=== PATIENT | male | born 1960 | race Caucasian/White ===

== ENCOUNTER 2022-08-18 14:29 | Emergency (ER) | payer MEDICAID ==
[~2022-08-18] VITALS: Ht 175.2 cm; Wt 83.0 kg
[2022-08-18] MEDS ORDERED: OMEPRAZOLE40 MG PO (14:41)
[2022-08-18] MEDS ORDERED: LISINOPRIL20 MG PO (14:41)
[2022-08-18 15:02] LABS: BILIRUBIN Negative (Negative); BLOOD Negative (Negative); CLARITY Clear (Clear); COLOR Yellow (Yellow); GLUCOSE Negative (Negative); KETONE Negative (Negative); LEUKO ESTERASE 1+ (Negative); NITRITE Negative (Negative); UROBILINOGEN 0.2 E.U./dl (0.0-1.0)
[2022-08-18 15:25] LABS: RBC 0-2 rbc/hpf (0-2)
[2022-08-18 15:35] LABS: BASO % 0.3 % (0.0-1.0); EOS # 0.2 10*3/uL (0.0-0.4); EOS % 2.6 % (1.0-4.0); HEMATOCRIT 34.8 % (42.0-52.0); LYMPH # 1.3 10*3/uL (1.3-4.4); LYMPH % 18.5 % (27.0-41.0); MEAN CELL VOLUME 93.3 fl (80.0-94.0); MEAN CORPUSCULAR HGB 29.2 pg (27.0-31.0); MEAN CORPUSCULAR HGB CONC 31.3 g/dl (33.0-37.0); MEAN PLATELET VOLUME 9.9 fl (9.6-12.3); MONO # 0.8 10*3/uL (0.1-1.0); MONO % 11.8 % (3.0-9.0); NEUT # 4.6 10*3/uL (2.3-7.9); NEUT % 66.5 % (47.0-73.0); PLATELET COUNT AUTOMATED 280 10*3/uL (130-400); RED BLOOD COUNT 3.73 10*6/uL (4.50-5.90); RED CELL DISTRI WIDTH 15.9 % (0-14.5)
[2022-08-18 15:53] LABS: POTASSIUM 4.3 mmol/L (3.4-5.1); TOTAL PROTEIN 6.6 gm/dL (6.0-8.0)
== END 2022-08-18 17:35 | disposition left against medical advice (07) ==
LOC: ED 14:29
PROVIDERS: Student in an Organized Health Care Education/Training Program
DX: N13.9 Obstructive and reflux uropathy, unspecified (principal); R33.9 Retention of urine, unspecified; N40.0 Benign prostatic hyperplasia without lower urinary tract symptoms; Z79.899 Other long term (current) drug therapy

== ENCOUNTER → 2024-07-31 | Outpatient (CLI) | payer MEDICARE ==
[~2024-07-31] MED LIST: IOHEXOL 300 MG/ML 100 ML VIAL IV ONE; IOHEXOL 300 MG/ML 100 ML VIAL ONE; LISINOPRIL20 MG PO; OMEPRAZOLE40 MG PO
== END | disposition home or self-care (01) ==
LOC: CT 00:27
PROVIDERS: ATTEND Family Medicine
DX: C61 Malignant neoplasm of prostate (principal); N32.89 Other specified disorders of bladder; K76.89 Other specified diseases of liver; N40.0 Benign prostatic hyperplasia without lower urinary tract symptoms; R10.2 Pelvic and perineal pain; K76.0 Fatty (change of) liver, not elsewhere classified

== ENCOUNTER → 2025-04-14 | Outpatient (CLI) | payer MEDICARE ==
[~2025-04-14] MED LIST changes: -IOHEXOL 300 MG/ML 100 ML VIAL IV ONE; -IOHEXOL 300 MG/ML 100 ML VIAL ONE
[2025-04-14 11:12] LABS: MEAN CELL VOLUME 98.5 fl (80.0-94.0); MEAN CORPUSCULAR HGB 31.8 pg (27.0-31.0); MEAN PLATELET VOLUME 10.3 fl (9.6-12.3); NUCLEATED RED BLOOD CELL 0.0 % (0.0-0.0); NUCLEATED RED BLOOD CELL 0.0 10*3/uL (0.0-0.0); PLATELET COUNT AUTOMATED 251.0 10*3/uL (130-400); RED CELL DISTRI WIDTH 13.0 % (0-14.5)
[2025-04-14 11:54] LABS: BUN 18 mg/dl (9-23); CPK 44 U/L (34-171); LDL CHOLESTEROL 188 mg/dL (9-159); SGPT/ALT 29 U/L (5-49)
[2025-04-16 00:07] LABS: TESTOS, FREE 0.3 pg/mL (6.6-18.1)
== END | disposition home or self-care (01) ==
LOC: LAB 04-11 13:32
PROVIDERS: ATTEND Family Medicine
DX: Z00.00 Encounter for general adult medical examination without abnormal findings (principal); N40.0 Benign prostatic hyperplasia without lower urinary tract symptoms; R19.5 Other fecal abnormalities; K59.00 Constipation, unspecified; M25.561 Pain in right knee; M25.562 Pain in left knee; C62.00 Malignant neoplasm of unspecified undescended testis; E87.70 Fluid overload, unspecified; Z79.899 Other long term (current) drug therapy